=== PATIENT | male | born 1980 | race Caucasian/White ===

== ENCOUNTER 2020-12-02 11:18 | Emergency (ER) | payer OTHER, SELFPAY ==
[2020-12-02 11:26] VITALS: BP 185/97; PULSE 103; RESP 20; TEMP 36.6; O2SAT 100
--- NOTE | 2020-12-02 11:26 | ED.EAR ---
HPI - Ear Problem General Chief complaint: Ear Stated complaint: Ear pain Time Seen by Provider: 12/02/20 11:38 Source: patient and RN notes reviewed Mode of arrival: ambulatory Limitations: no limitations History of Present Illness HPI Narrative: 40-year-old male presents with concern for chronic left ear pain. Reports a hole in his eardrum that he is followed by an ENT for, reports he has a plan to have surgery on the ear. Reports however over the last several days he has had increasing pain in the ear and has had to miss work. Reports he has an ear nose and throat appointment on Wednesday. He denies fever, body aches. Reports he uses prescription eardrops. MD Complaint: ear pain Related Data Home Medications Medication Instructions Recorded Confirmed levothyroxine 100 mcg tablet 100 mcg PO DAILY 11/28/19 09/12/20 lisinopril 20 mg tablet 20 mg PO DAILY 11/06/20 liothyronine 5 mcg PO DAILY 12/02/20 12/02/20 Allergies Allergy/AdvReac Type Severity Reaction Status Date / Time Penicillins Allergy Unknown unknown Verified 11/06/20 12:56 Review of Systems Review of Systems: CONSTITUTIONAL: Denies malaise, chills, sweats, or fever. EYES: Denies visual changes, redness, or discharge. ENT: Denies rhinorrhea, congestion, sinus pain, and sore throat. Reports left ear pain CARDIOVASCULAR: Denies chest pain, palpitations, or edema. RESPIRATORY: Denies cough or dyspnea. GASTROINTESTINAL: Denies abdominal pain, nausea, vomiting, diarrhea SKIN: Denies rash or itching. MUSCULOSKELETAL: Denies myalgia. NEUROLOGIC: Denies headache. All systems reviewed & are unremarkable except as noted in HPI and below PMFSH Social History Social History Smoking end date: 02/15/14 Comments At time of signature, agree with nursing past medical, surgical, social and family history. There is no relevant family history pertinent to the presenting complaint Exam Narrative: GENERAL: Well-appearing, well-nourished, and in no acute distress. HEAD: Normocephalic EYES: PERRLA, conjunctivae clear ENT: Nares clear. Mucous membranes moist. Right TM pearly garcia with dull light reflex left TM not intact with yellow discharge; no tragal tenderness. NECK: Supple. No lymphadenopathy CHEST: Clear to auscultation, breath sounds equal. No wheezing, rhonchi, rales, or stridor. No respiratory distress, speaks in full sentences. HEART: Regular rate and rhythm. No murmur heard. SKIN: Warm, dry, no rash. NEURO: Alert and oriented x3. PSYCH: Normal mood and affect Course Course Emergency Course: Patient preferred not to start on [employer] today as he is seeing his ear nose and throat doctor on Wednesday. He is most concerned with not returning to work until he sees his ear nose and throat doctor. Patient is aware of diagnosis, understands and agrees to treatment plan. Anticipatory guidance given. Patient agrees to follow-up as directed and is aware of reasons to seek care at the emergency department. Portions of this record may have been created with voice recognition software Vital Signs Vital signs: Reviewed. Medical Decision Making MDM Narrative Medical decision making narrative: Differential diagnosis considered: Desai virus, strep pharyngitis, allergic rhinitis, upper respiratory tract infection, sinusitis, rhinosinusitis, nasopharyngitis. viral pharyngitis, otitis media, otitis externa, foreign body, eustachian tube dysfunction, cerumen impaction, TM rupture. Exam findings show no acute concerns or changes; patient is non-toxic appearing and is in no distress. Patient is appropriate for outpatient treatment and follow-up. Critical Care Time Critical Care Time Critical Care Time: No Discharge Plan Discharge Clinical Impression: Chronic otitis media of left ear Patient Disposition: Home, Self-Care Condition: Stable Instructions: General Patient Instructions Additional Instructions: 1)
== END 2020-12-02 11:51 | disposition home or self-care (01) ==
PROVIDERS: Emergency Provider Nurse Practitioner; PCP Internal Medicine Infectious Disease
DX: H66.92 Otitis media, unspecified, left ear (principal); I10 Essential (primary) hypertension; E03.9 Hypothyroidism, unspecified
CPT/HCPCS: 99211; G0463

== ENCOUNTER 2021-05-04 09:00 | Emergency (ER) | payer OTHER, SELFPAY ==
[2021-05-04 09:05] VITALS: BP 154/89; PULSE 77; RESP 20; TEMP 36.6; O2SAT 100
--- NOTE | 2021-05-04 09:42 | ED.GENADULT ---
HPI - General Adult General Chief complaint: Skin/Abscess/Foreign Body Stated complaint: swollen gland on right side of neck Source: patient Mode of arrival: ambulatory Limitations: no limitations History of Present Illness HPI narrative: Pt presents for evaluation of swelling to the right side of the neck. Symptom onset two days ago when he woke from sleep. The night prior his CPAP ran out of humidification. He denies any pain per se but states that it is uncomfortable . He has a hx of hypothyroidism and is on dual therapy for it. He also has a hx of ear infections. Denies sore throat per se. His symptoms are more noticeable when eating. He does not smoke. He denies fever, chills, nausea, vomiting, cough, SOB, difficulty breathing or swallowing. He came in for further evaluation to ensure his symptoms were not infectious in origin. Of note, he does consume lemon juice mixed with apple cider vinegar on a regular basis. He states when he was in his youth he had two neck biopsies that were both negative. When asked why he had biopsies performed he states that his mother has Munchausen's and DFS got involved. Related Data Home Medications Medication Instructions Recorded Confirmed levothyroxine 100 mcg tablet 100 mcg PO DAILY 11/28/19 05/04/21 lisinopril 20 mg tablet 20 mg PO DAILY 11/06/20 05/04/21 liothyronine 5 mcg PO DAILY 12/02/20 05/04/21 Allergies Allergy/AdvReac Type Severity Reaction Status Date / Time Penicillins Allergy Unknown unknown Verified 11/06/20 12:56 Review of Systems Review of Systems: CONSTITUTIONAL: Denies fever, chills, or sweats. EYES: Denies visual changes, redness, or discharge. ENT: Reports swelling to right side of the neck. Denies rhinorrhea, congestion, sore throat, or otalgia. CARDIOVASCULAR: Denies chest pain, palpitations, or edema. RESPIRATORY: Denies cough or dyspnea. GASTROINTESTINAL: Denies abdominal pain, nausea, vomiting, or diarrhea. GENITOURINARY: Denies dysuria or hematuria. SKIN: Denies rash or itching. MUSCULOSKELETAL: Denies back pain, joint pain, or myalgia. NEUROLOGIC: Denies headache, numbness, dizziness, or weakness. PSYCHIATRIC: Denies anxiety or depression. [facility] Past Medical History Medical History (Updated 05/04/21 @ 09:53 by Souleymane Villafuerte, [facility], ) Hypothyroid Surgical History Surgical History History of biopsy Family History Family History Mother Munchausen syndrome Social History Social History Smoking end date: 02/15/14 Alcohol intake: current Alcohol use details: a few times per month socially Substance use: never Additional living arrangements comments: Lives with significant other Gender identity (if verbalized by the patient): Male Sexual Orientation (if Verbalized by the Patient): Straight or Heterosexual Spiritual care concerns: No Exam Narrative: GENERAL: Well-appearing, well-nourished, and in no acute distress. HEAD: Normocephalic, atraumatic. EYES: PERRLA and EOMI. ENT: Nares clear, no rhinorrhea or epistaxis. Mucous membranes moist. Oropharynx without tonsillar hypertrophy exudate or other lesions. Bilateral TMs pearly garcia nonbulging NECK: Supple. There is swelling noted in right submandibular region. No carotid bruits or JVD CHEST: Clear to auscultation. No respiratory distress. No wheezes rales or rhonchi HEART: Regular rate and rhythm. No murmur heard. Normal peripheral pulses. ABDOMEN: Soft, nontender, nondistended, normal active bowel sounds. EXTREMITIES: Normal range of motion. No edema. SKIN: Warm, dry, no rash. NEURO: No focal deficits. Alert and oriented x3. PSYCH: Normal mood and affect. Course Course Emergency Course: This is a 40-year-old male who presented with complaints of swelling in the right side of the
== END 2021-05-04 09:55 | disposition home or self-care (01) ==
PROVIDERS: Emergency Provider Nurse Practitioner; PCP Internal Medicine Infectious Disease
DX: K11.5 Sialolithiasis (principal); E03.9 Hypothyroidism, unspecified
CPT/HCPCS: 87081; 87880; 99213; G0463

== ENCOUNTER 2021-09-11 15:12 | Emergency (ER) | payer OTHER, SELFPAY ==
--- NOTE | 2021-09-11 15:21 | ED.EAR ---
HPI - Ear Problem General Chief complaint: Ear Stated complaint: Left Ear Pain Time Seen by Provider: 09/11/21 15:21 Source: patient Mode of arrival: ambulatory Limitations: no limitations History of Present Illness HPI Narrative: Mr. Powell is a 41-year-old male patient presenting to the clinic today with complaints of left ear pain 2 to 3 days He reports he has been seen in the ears nose and throat provider regularly for this problem. Reports that he feels antibiotic eardrops into his ear as prescribed by the ears nose and throat provider. He has an appointment with the provider on Wednesday however he is in a lot of pain and is needing a work note until he can be seen by his ears nose and throat provider again. He denies any fever or chills. He does have some left-sided facial swelling however that is caused by surgery he had on his left ear in the past and the swelling is normal for him. Related Data Home Medications Medication Instructions Recorded Confirmed levothyroxine 100 mcg tablet 100 mcg PO DAILY 11/28/19 05/04/21 lisinopril 20 mg tablet 20 mg PO DAILY 11/06/20 05/04/21 liothyronine 5 mcg tablet 5 mcg PO DAILY 12/02/20 05/04/21 Allergies Allergy/AdvReac Type Severity Reaction Status Date / Time Penicillins Allergy Unknown unknown Verified 09/11/21 15:23 Review of Systems Review of Systems: Pertinent positives per HPI. Patient denies any fever, chills, rash, headache, visual changes, dizziness, cough, runny nose, sore throat, shortness of breath, chest pain, palpitations, nausea, vomiting, diarrhea, constipation, abdominal pain, or any urinary issues. [facility] Past Medical History Medical History Hypothyroid Surgical History Surgical History History of biopsy Family History Family History Mother Munchausen syndrome Social History Social History Smoking end date: 02/15/14 Alcohol intake: current Alcohol use details: a few times per month socially Substance use: never Additional living arrangements comments: Lives with significant other Gender identity (if verbalized by the patient): Male Sexual Orientation (if Verbalized by the Patient): Straight or Heterosexual Spiritual care concerns: No Comments At the time of my signature, I reviewed and agree with the nursing past medical, surgical, social, and family history. There is no relevant family history pertinent to the patient complaint. Exam Narrative: General: Well-developed, well nourished, in no apparent distress Head: Normocephalic, atraumatic, mild left facial swelling without redness or erythremia Eyes: Pupils equally round and reactive to light bilaterally, EOM intact, sclera and conjunctive clear, no discharge, lids normal Ears: Right TMs intact and clear, left TM intact and dull, little cerumen in the ear canals, throbbing pain to the ear, no drainage, grossly hearing normal. Nose: Nares patent, no discharge, no inflammation, no sinus tenderness. Mouth: Oropharynx without lesions or masses, good dentition, MMM. Neck: Supple, trachea midline, no enlargement of anterior or posterior cervical nodes, no thyroid masses or goiter palpable. Cardio: Regular rate and rhythm, s1 and s2 normal, no murmur appreciated. Resp: Clear to auscultation bilaterally anteriorly and posteriorly, no rhonchi, rales, wheezing or rubs Course Course Emergency Course: Portions of this record may have been created with voice recognition software. Level of Care: Express Care Visit Vital Signs Vital signs: Vital signs reviewed Medical Decision Making MDM Narrative Medical decision making narrative: At the time of visit patient is resting comfortably on the exam table. Recommend taking a steroid for t
[2021-09-11 15:24] VITALS: BP 166/83; PULSE 81; RESP 16; TEMP 37.2; O2SAT 100
== END 2021-09-11 15:33 | disposition home or self-care (01) ==
PROVIDERS: Emergency Provider Nurse Practitioner Family; PCP Internal Medicine Infectious Disease
DX: H92.02 Otalgia, left ear (principal); E03.9 Hypothyroidism, unspecified; Z87.891 Personal history of nicotine dependence
CPT/HCPCS: 99211; G0463

== ENCOUNTER 2021-11-10 10:18 | Emergency (ER) | payer OTHER, SELFPAY ==
[2021-11-10 10:30] VITALS: BP 149/88; PULSE 66; RESP 16; TEMP 36.4; O2SAT 100
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
== END 2021-11-10 11:35 | disposition home or self-care (01) ==
PROVIDERS: Emergency Provider Registered Nurse; PCP Internal Medicine Infectious Disease
DX: J06.9 Acute upper respiratory infection, unspecified (principal); J02.9 Acute pharyngitis, unspecified; Z20.822 Contact with and (suspected) exposure to COVID-19; Z87.891 Personal history of nicotine dependence; I10 Essential (primary) hypertension; E03.9 Hypothyroidism, unspecified
CPT/HCPCS: 87081; 87426; 87880; 99213; C9803; G0463

== ENCOUNTER 2022-01-21 12:05 | Emergency (ER) | payer OTHER, SELFPAY ==
[2022-01-21 12:32] VITALS: BP 170/73; PULSE 70; RESP 18; TEMP 36.8; O2SAT 99
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
== END 2022-01-21 15:29 | disposition home or self-care (01) ==
PROVIDERS: Emergency Provider Registered Nurse; PCP Internal Medicine Infectious Disease
DX: J06.9 Acute upper respiratory infection, unspecified (principal); Z20.822 Contact with and (suspected) exposure to COVID-19; Z87.891 Personal history of nicotine dependence; I10 Essential (primary) hypertension; E03.9 Hypothyroidism, unspecified
CPT/HCPCS: 87426; 87804; 99213; C9803; G0463